=== PATIENT | female | born 1950 | race Caucasian/White ===

== ENCOUNTER 2018-12-26 08:55 | Day surgery (SDC) | payer MEDICARE, BC ==
[~2018-12-26] VITALS: Ht 162.6 cm; Wt 66.4 kg
[2018-12-26] MEDS ORDERED: normal saline 1000ml 1,000 ML IV PRN (09:10)
[2018-12-26 09:17] VITALS: BP 127/89
[2018-12-26] MEDS ORDERED: LANS15CA18 PO (09:25)
[2018-12-26] MEDS ORDERED: TRIA1TAB5 PO (09:25)
[2018-12-26] MEDS ORDERED: MULT1CAP34 PO (09:25)
[2018-12-26] MEDS ORDERED: ASCO-297 PO (09:25)
[2018-12-26] MEDS ORDERED: CALCIUM CARBONATE (09:25)
[2018-12-26 09:48] LABS: BASOPHILS % (AUTO) 0.6 % (0-1); EOSINOPHILS # (AUTO) 0.2 X10'3 (0-0.9); EOSINOPHILS % (AUTO) 2.7 % (0-6); HEMATOCRIT 42.7 % (35.0-45.0); HEMOGLOBIN 14.4 g/dl (12.0-16.0); LYMPHOCYTES # (AUTO) 1.8 X10'3 (1.1-4.8); LYMPHOCYTES % (AUTO) 29.1 % (21-51); MEAN CORPUSCULAR HEMOGLOBIN 32.1 PG (27.0-31.0); MEAN CORPUSCULAR HGB CONC 33.7 g/dL (33.0-36.5); MEAN CORPUSCULAR VOLUME 95.5 FL (78-98); MEAN PLATELET VOLUME 6.6 FL (7.4-10.4); MONOCYTES # (AUTO) 0.7 X10'3 (0-0.9); MONOCYTES % (AUTO) 10.8 % (2-12); NEUTROPHILS # (AUTO) 3.5 X10'3 (1.8-7.7); NEUTROPHILS % (AUTO) 56.8 % (42-75); PLATELET COUNT 424 X10'3 (140-440); RED BLOOD COUNT 4.47 X10'6 (4.20-5.60); RED CELL DISTRIBUTION WIDTH 12.7 % (11.5-14.5); WHITE BLOOD COUNT 6.2 X10'3 (4.5-11.0)
[2018-12-26 09:54] LABS: ALBUMIN 3.5 G/DL (3.4-5.0); ANION GAP 8 (8-16); BLOOD UREA NITROGEN 11 MG/DL (7-18); BUN/CREATININE RATIO 15.7 (6.6-38.0); CHLORIDE 104 MMOL/L (99-107); GLUCOSE 92 MG/DL (70-104); POTASSIUM 3.3 MMOL/L (3.5-5.1); SODIUM 143 MMOL/L (135-145); TOTAL CARBON DIOXIDE 30.7 MMOL/L (24-32); eGFR 83 ML/MIN
[2018-12-26 09:59] LABS: PARTIAL THROMBOPLASTIN TIME 33 SECONDS (22-32)
[2018-12-26] MEDS ORDERED: normal saline 1000ml 1,000 ML IV SCH (10:34)
[2018-12-26] MEDS ORDERED: midazolam 2 mg/2 ml injection IV PRN (10:35)
[2018-12-26] MEDS ORDERED: LIDOcaine 1% 30ml preserv. free vial SQ ONE (10:35)
[2018-12-26] MEDS ORDERED: fentaNYL/PF 50MCG/1 ML 2ML syringe IV PRN (10:35)
[2018-12-26] MEDS ORDERED: heparin sodium, porcine/PF 100unit/ml 5ML syringe ICATH ONE (10:35)
[2018-12-26] MEDS ORDERED: midazolam 2 mg/2 ml injection ONE (10:56)
[2018-12-26] MEDS ORDERED: fentaNYL/PF 50MCG/1 ML 2ML syringe ONE (10:56)
[2018-12-26] MEDS ORDERED: LIDOcaine 1%/PF 5ML 10 MG/ML VIAL ONE (10:56)
[2018-12-26] MEDS ORDERED: heparin sodium, porcine/PF 100unit/ml 5ML syringe ONE (10:56)
[2018-12-26 12:00] VITALS: BP 144/82
[2018-12-26 12:15] VITALS: BP 132/78
[2018-12-26 12:30] VITALS: BP 143/69
[2018-12-26 12:45] VITALS: BP 127/67
== END 2018-12-26 13:10 | disposition home or self-care (01) ==
LOC: SSTAY O 08:55
PROVIDERS: ATTEND Radiology Diagnostic Radiology
DX: C50.411 Malignant neoplasm of upper-outer quadrant of right female breast (principal); Z96.653 Presence of artificial knee joint, bilateral; Z90.5 Acquired absence of kidney; Z98.890 Other specified postprocedural states; Z79.899 Other long term (current) drug therapy; Z87.891 Personal history of nicotine dependence; Z79.01 Long term (current) use of anticoagulants; Z72.89 Other problems related to lifestyle; Z80.42 Family history of malignant neoplasm of prostate; Z80.3 Family history of malignant neoplasm of breast; Z80.0 Family history of malignant neoplasm of digestive organs
CPT/HCPCS: 36415; 36561; 76937; 77001; 80048; 85025; 85730; 99152; 99153; C1788; C1894; J1642; J2250; J3010; J7030; A6213

== ENCOUNTER 2019-01-23 06:36 | Day surgery (SDC) | payer MEDICARE, BC ==
[2019-01-23] VITALS (17 sets, daily range): BP systolic 90–137; BP diastolic 7–89
[~2019-01-23] VITALS: Ht 162.6 cm; Wt 66.0 kg
[~2019-01-23 06:36] MED LIST: ASCO-297 PO; CALCIUM CARBONATE; LANS15CA18 PO; MULT1CAP34 PO; TRIA1TAB5 PO
[2019-01-23] MEDS ORDERED: ONDA4TAB12 PO (07:41)
[2019-01-23] MEDS ORDERED: PROC5TAB10 PO (07:41)
[2019-01-23] MEDS ORDERED: midazolam 2 mg/2 ml injection IV PRN (08:05)
[2019-01-23] MEDS ORDERED: fentaNYL/PF 50MCG/1 ML 2ML syringe IV PRN (08:05)
[2019-01-23] MEDS ORDERED: LIDOcaine 1% (10mg/ml) 2ml vial SQ ONE (08:05)
[2019-01-23 08:15] LABS: ALBUMIN 4.2 G/DL (3.4-5.0); ANION GAP 12 (8-16); BLOOD UREA NITROGEN 10 MG/DL (7-18); BUN/CREATININE RATIO 10.4 (6.6-38.0); CALCIUM 9.9 MG/DL (8.5-10.1); CHLORIDE 104 MMOL/L (99-107); CREATININE 0.96 MG/DL (0.40-0.90); GLUCOSE 83 MG/DL (70-104); POTASSIUM 3.4 MMOL/L (3.5-5.1); SODIUM 143 MMOL/L (135-145); TOTAL CARBON DIOXIDE 26.9 MMOL/L (24-32); eGFR 58 ML/MIN
[2019-01-23 08:19] LABS: NEUTROPHILS # (AUTO) 2.9 X10'3 (1.8-7.7); WHITE BLOOD COUNT 4.9 X10'3 (4.5-11.0)
[2019-01-23 08:20] LABS: BASOPHILS % (AUTO) 0.9 % (0-1); EOSINOPHILS % (AUTO) 0.2 % (0-6); HEMATOCRIT 38.9 % (35.0-45.0); HEMOGLOBIN 13.2 g/dl (12.0-16.0); LYMPHOCYTES # (AUTO) 1.3 X10'3 (1.1-4.8); LYMPHOCYTES % (AUTO) 27.2 % (21-51); MEAN CORPUSCULAR HEMOGLOBIN 32.5 PG (27.0-31.0); MEAN CORPUSCULAR VOLUME 95.8 FL (78-98); MEAN PLATELET VOLUME 7.4 FL (7.4-10.4); MONOCYTES # (AUTO) 0.6 X10'3 (0-0.9); MONOCYTES % (AUTO) 12.8 % (2-12); NEUTROPHILS % (AUTO) 58.9 % (42-75); PLATELET COUNT 406 X10'3 (140-440); RED BLOOD COUNT 4.07 X10'6 (4.20-5.60); RED CELL DISTRIBUTION WIDTH 13.1 % (11.5-14.5)
[2019-01-23] MEDS ORDERED: fentaNYL/PF 50MCG/1 ML 2ML syringe ONE (09:08)
[2019-01-23] MEDS ORDERED: midazolam 2 mg/2 ml injection ONE (09:08)
[2019-01-23 09:36] LABS: PLATELET ESTIMATE NORMAL; TOTAL CELLS COUNTED 100
[2019-01-23 09:37] LABS: TOXIC GRANULATION 1+
[2019-01-23] MEDS ORDERED: gelatin sponge, absorbable (Gelfoam 12-7MM) sponge TP ONE (09:38)
[2019-01-23] MEDS ORDERED: HYDROcodone/acetaminophen 5mg/325mg tablet PO PRN (10:30)
== END 2019-01-23 12:30 | disposition home or self-care (01) ==
LOC: SSTAY O 06:36
PROVIDERS: ATTEND Radiology Diagnostic Radiology
DX: R91.1 Solitary pulmonary nodule (principal); I10 Essential (primary) hypertension; K21.9 Gastro-esophageal reflux disease without esophagitis; Z85.3 Personal history of malignant neoplasm of breast; Z79.01 Long term (current) use of anticoagulants; Z96.653 Presence of artificial knee joint, bilateral; Z98.890 Other specified postprocedural states; Z90.5 Acquired absence of kidney; Z79.899 Other long term (current) drug therapy
CPT/HCPCS: 10005; 36415; 71045; 80048; 85025; 85610; 99152; 99153; J2250; J3010; 32405; 77012; 88173

== ENCOUNTER 2019-12-25 07:16 | Day surgery (SDC) | payer MEDICARE, BC ==
[~2019-12-25] VITALS: Ht 162.6 cm; Wt 65.7 kg
[2019-12-25] VITALS (17 sets, daily range): BP systolic 117–146; BP diastolic 65–98
[~2019-12-25 07:16] MED LIST changes: +ONDA4TAB12 PO; +PROC5TAB10 PO
[2019-12-25] MEDS ORDERED: normal saline 1000ml 1,000 ML IV PRN (07:40)
[2019-12-25] MEDS ORDERED: SPIR25TA5 PO (08:30)
[2019-12-25] MEDS ORDERED: VENL-191 PO (08:30)
[2019-12-25] MEDS ORDERED: VIT1CAPS46 PO (08:30)
[2019-12-25 08:32] LABS: BASOPHILS % (AUTO) 0.5 % (0-1); EOSINOPHILS # (AUTO) 0.1 X10'3 (0-0.9); EOSINOPHILS % (AUTO) 2.5 % (0-6); HEMATOCRIT 45.3 % (35.0-45.0); HEMOGLOBIN 15.1 g/dl (12.0-16.0); LYMPHOCYTES # (AUTO) 0.7 X10'3 (1.1-4.8); LYMPHOCYTES % (AUTO) 15.4 % (21-51); MEAN CORPUSCULAR HEMOGLOBIN 34.1 PG (27.0-31.0); MEAN CORPUSCULAR HGB CONC 33.4 g/dL (33.0-36.5); MEAN CORPUSCULAR VOLUME 102.1 FL (78-98); MEAN PLATELET VOLUME 6.8 FL (7.4-10.4); MONOCYTES # (AUTO) 0.4 X10'3 (0-0.9); MONOCYTES % (AUTO) 7.9 % (2-12); NEUTROPHILS # (AUTO) 3.3 X10'3 (1.8-7.7); NEUTROPHILS % (AUTO) 73.7 % (42-75); PLATELET COUNT 291 X10'3 (140-440); RED BLOOD COUNT 4.44 X10'6 (4.20-5.60); RED CELL DISTRIBUTION WIDTH 12.8 % (11.5-14.5); WHITE BLOOD COUNT 4.5 X10'3 (4.5-11.0)
[2019-12-25] MEDS ORDERED: HYDR-3965 PO (08:34)
[2019-12-25 08:59] LABS: ALBUMIN 3.9 G/DL (3.4-5.0); ANION GAP 11 (8-16); BLOOD UREA NITROGEN 13 MG/DL (7-18); BUN/CREATININE RATIO 16.9 (6.6-38.0); CALCIUM 9.3 MG/DL (8.5-10.1); CHLORIDE 108 MMOL/L (99-107); CREATININE 0.77 MG/DL (0.40-0.90); GLUCOSE 91 MG/DL (70-104); POTASSIUM 3.5 MMOL/L (3.5-5.1); SODIUM 144 MMOL/L (135-145); TOTAL CARBON DIOXIDE 25.4 MMOL/L (24-32); eGFR 74 ML/MIN
[2019-12-25] MEDS ORDERED: fentaNYL/PF 50MCG/1 ML 2ML syringe ONE (09:15)
[2019-12-25] MEDS ORDERED: midazolam 2 mg/2 ml injection ONE (09:15)
[2019-12-25] MEDS ORDERED: acetaminophen 325mg tablet PO PRN (13:00)
== END 2019-12-25 14:00 | disposition home or self-care (01) ==
LOC: SSTAY O 07:16
PROVIDERS: ATTEND Radiology Diagnostic Radiology
DX: R91.1 Solitary pulmonary nodule (principal); Z85.3 Personal history of malignant neoplasm of breast; Z79.899 Other long term (current) drug therapy; Z79.01 Long term (current) use of anticoagulants; Z11.59 Encounter for screening for other viral diseases
CPT/HCPCS: 32405; 36415; 71045; 77012; 80048; 85025; 85610; 87635; J2250; J3010; J7030; 99152; 99153

== ENCOUNTER 2019-12-27 11:07 | Emergency (ER) | payer MEDICARE, BC ==
[~2019-12-27] VITALS: Ht 162.6 cm; Wt 64.5 kg
[~2019-12-27 11:07] MED LIST changes: +HYDR-3965 PO; -LANS15CA18 PO; -ONDA4TAB12 PO; -PROC5TAB10 PO; +SPIR25TA5 PO; -TRIA1TAB5 PO; +VENL-191 PO; +VIT1CAPS46 PO
[2019-12-27 11:43] LABS: BASOPHILS % (AUTO) 0.2 % (0-1); EOSINOPHILS # (AUTO) 0.2 X10'3 (0-0.9); EOSINOPHILS % (AUTO) 3.4 % (0-6); HEMATOCRIT 45.7 % (35.0-45.0); HEMOGLOBIN 15.6 g/dl (12.0-16.0); LYMPHOCYTES # (AUTO) 0.9 X10'3 (1.1-4.8); LYMPHOCYTES % (AUTO) 12.8 % (21-51); MEAN CORPUSCULAR HEMOGLOBIN 34.6 PG (27.0-31.0); MEAN CORPUSCULAR VOLUME 101.6 FL (78-98); MEAN PLATELET VOLUME 6.8 FL (7.4-10.4); MONOCYTES # (AUTO) 0.6 X10'3 (0-0.9); NEUTROPHILS # (AUTO) 5.4 X10'3 (1.8-7.7); NEUTROPHILS % (AUTO) 74.6 % (42-75); PLATELET COUNT 307 X10'3 (140-440); RED CELL DISTRIBUTION WIDTH 12.4 % (11.5-14.5); WHITE BLOOD COUNT 7.2 X10'3 (4.5-11.0)
[2019-12-27 11:59] LABS: ALANINE AMINOTRANSFERASE 24 U/L (12-78); ALBUMIN/GLOBULIN RATIO 1.1 (1.1-1.5); ALKALINE PHOSPHATASE 97 IU/L (46-116); ANION GAP 12 (8-16); ASPARTATE AMINO TRANSFERASE 17 U/L (10-37); BILIRUBIN,TOTAL 0.7 MG/DL (0.1-1.0); BLOOD UREA NITROGEN 8 MG/DL (7-18); BUN/CREATININE RATIO 10.3 (6.6-38.0); CALCIUM 9.6 MG/DL (8.5-10.1); CHLORIDE 104 MMOL/L (99-107); CREATININE 0.78 MG/DL (0.40-0.90); GLUCOSE 107 MG/DL (70-104); POTASSIUM 3.3 MMOL/L (3.5-5.1); SODIUM 142 MMOL/L (135-145); TOTAL CARBON DIOXIDE 26.2 MMOL/L (24-32); TOTAL PROTEIN 7.7 G/DL (6.4-8.2); eGFR 73 ML/MIN
[2019-12-27] MEDS ORDERED: dexamethasone 4mg/ml inj IV STA (15:54)
[2019-12-27] MEDS ORDERED: GADOTERATE MEGLUMINE 7.5 MMOL/15 ML VIAL IV ONE (17:19)
[2019-12-27] MEDS: dexamethasone 4mg/ml inj IV SCH (23:03)
[2019-12-28] MEDS: dexamethasone 4mg/ml inj IV SCH (05:05)
--- NOTE | 2019-12-28 05:21 | NUR ---
REPORT GIVEN TO YOLY STILL AT [facility], ROOM 276. [phone]
--- NOTE | 2019-12-28 06:50 | NUR ---
TRANSFER TEAM HERE TO TAKE PATIENT TO [facility] IN [place]. DEPARTED PER CAITLIN, IN GOOD STABLE.
[2019-12-28 06:55] VITALS: BP 120/85
== END 2019-12-28 06:58 | disposition short-term general hospital (02) ==
LOC: ER 11:08
DX: C79.9 Secondary malignant neoplasm of unspecified site (principal); Z79.899 Other long term (current) drug therapy
CPT/HCPCS: 36415; 70450; 70553; 71045; 80053; 83880; 84484; 85025; 87635; 88341; 93005; 96374; 96376; 99285; A9575; C9803; J1100; 88305; 88342

== ENCOUNTER 2020-07-20 12:02 | Emergency (ER) | payer MEDICARE, BC ==
[~2020-07-20] VITALS: Ht 162.6 cm; Wt 63.6 kg
[2020-07-20 13:19] LABS: BASOPHILS # (AUTO) 0.1 X10'3 (0-0.2); BASOPHILS % (AUTO) 0.7 % (0-1); EOSINOPHILS # (AUTO) 0.1 X10'3 (0-0.9); EOSINOPHILS % (AUTO) 1.4 % (0-6); HEMATOCRIT 39.7 % (35.0-45.0); HEMOGLOBIN 12.9 g/dl (12.0-16.0); LYMPHOCYTES # (AUTO) 1.1 X10'3 (1.1-4.8); LYMPHOCYTES % (AUTO) 12.6 % (21-51); MEAN CORPUSCULAR HEMOGLOBIN 31.1 PG (27.0-31.0); MEAN CORPUSCULAR HGB CONC 32.6 g/dL (33.0-36.5); MEAN CORPUSCULAR VOLUME 95.4 FL (78-98); MEAN PLATELET VOLUME 7.5 FL (7.4-10.4); MONOCYTES # (AUTO) 0.9 X10'3 (0-0.9); MONOCYTES % (AUTO) 9.9 % (2-12); NEUTROPHILS # (AUTO) 6.6 X10'3 (1.8-7.7); NEUTROPHILS % (AUTO) 75.4 % (42-75); PLATELET COUNT 405 X10'3 (140-440); RED BLOOD COUNT 4.16 X10'6 (4.20-5.60); RED CELL DISTRIBUTION WIDTH 17.6 % (11.5-14.5); WHITE BLOOD COUNT 8.8 X10'3 (4.5-11.0)
[2020-07-20 13:25] LABS: ALANINE AMINOTRANSFERASE 35 U/L (12-78); ALBUMIN 3.3 G/DL (3.4-5.0); ALBUMIN/GLOBULIN RATIO 0.9 (1.1-1.5); ALKALINE PHOSPHATASE 84 IU/L (46-116); ANION GAP 13 (8-16); ASPARTATE AMINO TRANSFERASE 29 U/L (10-37); BILIRUBIN,TOTAL 0.4 MG/DL (0.1-1.0); BLOOD UREA NITROGEN 8 MG/DL (7-18); BUN/CREATININE RATIO 11.8 (6.6-38.0); CALCIUM 9.5 MG/DL (8.5-10.1); CHLORIDE 105 MMOL/L (99-107); CREATININE 0.68 MG/DL (0.40-0.90); GLUCOSE 94 MG/DL (70-104); POTASSIUM 3.6 MMOL/L (3.5-5.1); SODIUM 142 MMOL/L (135-145); TOTAL CARBON DIOXIDE 24.3 MMOL/L (24-32); TOTAL PROTEIN 6.8 G/DL (6.4-8.2); eGFR 86 ML/MIN
[2020-07-20] MEDS ORDERED: LIDOcaine 1.5% w/epinephrine 1:200,000 5ml ampul IJ ONE (13:30)
[2020-07-20] MEDS ORDERED: LIDOcaine 1% W/epiNEPHrine 1:200,000 10ml vial IJ ONE (13:35)
[2020-07-20 13:40] LABS: CLARITY,URINE TURBID (Clear); COLOR,URINE YELLOW (Yellow); GLUCOSE, URINE NEGATIVE (Neg); KETONES,URINE 15 mg/dl (Neg); LEUKOCYTE ESTERASE ,URINE LARGE (Neg); NITRITES, URINE NEGATIVE (Neg); OCCULT BLOOD,URINE LARGE (Neg); PROTEIN,URINE >=300 mg/dl (Neg)
[2020-07-20 13:57] LABS: UA COLLECTION TYPE STRAIGHT CATH
[2020-07-20 13:58] LABS: BACTERIA,URINE 4+ /HPF (Neg); WBC,URINE TNTC /HPF (0-4)
[2020-07-20 13:59] LABS: RBC,URINE 0-2 /HPF (0-2); SQUAMOUS EPITHELIAL CELL,UR FEW /LPF (FEW)
[2020-07-20 14:22] VITALS: BP 125/78
[2020-07-20] MEDS ORDERED: CEPH250T PO (14:31)
== END 2020-07-20 15:04 | disposition home or self-care (01) ==
LOC: ER 12:03
DX: S01.01XA Laceration without foreign body of scalp, initial encounter (principal); N39.0 Urinary tract infection, site not specified; Z79.899 Other long term (current) drug therapy; Z79.2 Long term (current) use of antibiotics; Z85.841 Personal history of malignant neoplasm of brain; W05.0XXA Fall from non-moving wheelchair, initial encounter; Z91.81 History of falling; Y93.89 Activity, other specified; Y92.89 Other specified places as the place of occurrence of the external cause; Y99.8 Other external cause status
CPT/HCPCS: 12001; 36415; 70450; 72125; 80053; 81001; 85025; 85610; 87088; 99285